=== PATIENT | female | born 1975 ===

== ENCOUNTER 2016-04-22 23:18 | Emergency (ER) | payer OTHER ==
[2016-04-22] MEDS ORDERED: ENEMA--pediatric 1 EACH ONE (23:39)
[2016-04-23 01:35] LABS: HCG,QUALITATIVE URINE NEGATIVE
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
== END 2016-04-23 02:59 | disposition home or self-care (01) ==
LOC: ED 23:18
DX: S60.221A Contusion of right hand, initial encounter (principal); M54.6 Pain in thoracic spine; V48.0XXA Car driver injured in noncollision transport accident in nontraffic accident, initial encounter; Y92.410 Unspecified street and highway as the place of occurrence of the external cause